=== PATIENT | male | born 1995 | race Caucasian/White ===

== ENCOUNTER 2019-01-10 05:21 | Emergency (ER) | payer SELFPAY ==
[2019-01-10] MEDS ORDERED: SULFAMETHOXAZOLE/TRIMETHOPRIM 800-160 MG TABLET PO ONE (07:56)
[2019-01-10] MEDS ORDERED: CEPHALEXIN 500 MG CAPSULE PO ONE (07:56)
[2019-01-10] MEDS ORDERED: ACETAMINOPHEN 325 MG TABLET PO ONE (07:59)
--- NOTE | 2019-01-10 08:02 | ER Document Report ---
ED General - General Chief Complaint: Skin Problem Time Seen by Provider: 01/10/19 07:43 - HPI Notes: Patient is a 23-year-old male that presents to the emergency department for chief complaint of right arm redness and pain. Patient reports history of IV drug abuse and most recently injected heroin into his right arm 2 days ago. He states he noticed some redness in the right arm 3 days ago and did inject into his arm after seeing it become red. He reports sweats and chills but denies taking his temperature having a fever. He states the right arm is throbbing and warm. He denies any numbness or tingling in the arm. He denies any difficulty breathing or chest pain. He has not taken any medicine at home for his symptoms. Patient states he last used opiates 2 days ago. Past Medical History: Negative Past Surgical History: Negative Social History: IV heroin abuse. Daily tobacco. Denies alcohol. Family History: Reviewed and noncontributory for presenting illness Allergies: Reviewed, see documented allergy list. REVIEW OF SYSTEMS: CONSTITUTIONAL : No fever No chills No diaphoresis No recent illness EENT: No vision changes No congestion No sore throat CARDIOVASCULAR: No chest pain No palpitations RESPIRATORY: No shortness of breath No cough No difficulty breathing GASTROINTESTINAL: No abdominal pain No nausea No vomiting No diarrhea GENITOURINARY: No dysuria No hematuria No difficulty urinating MUSCULOSKELETAL: No back pain No leg pain arm pain SKIN: rashes No lesions LYMPHATIC: No swollen, enlarged glands. NEUROLOGICAL: No lightheadedness No headache No weakness No paresthesias PSYCHIATRIC: No anxiety No depression PHYSICAL EXAMINATION: Vital signs reviewed, nursing noted reviewed. GENERAL: Well-appearing, well-nourished and in no acute distress. HEAD: Atraumatic, normocephalic. EYES: Eyes appear normal, extraocular movements intact, sclera anicteric, conjunctiva are normal. ENT: nares patent, oropharynx clear without exudates. Moist mucous membranes. NECK: Normal range of motion, supple without lymphadenopathy LUNGS: Breath sounds clear to auscultation bilaterally and equal. No wheezes rales or rhonchi. HEART: Tachycardic rate and regular rhythm without murmurs ABDOMEN: Soft, nontender, normoactive bowel sounds. No rebound, guarding, or rigidity. No masses appreciated. EXTREMITIES: Right medial AC erythema and tenderness to palpation with no fluctuance, good range of motion, no pitting or edema. NEUROLOGICAL: No focal neurological deficits. Moves all extremities spontaneously Motor and sensory grossly intact on exam. PSYCH: Normal mood, normal affect. SKIN: Warm, Dry, normal turgor, erythema over right AC without proximal streaking Past Medical History - Social History Smoking Status: Current Every Day Smoker Family History: Reviewed & Not Pertinent Physical Exam - Vital signs Vitals: Temp Pulse Resp BP Pulse Ox 98.7 F 119 H 16 117/96 H 100 01/10/19 07:52 01/10/19 07:52 01/10/19 07:52 01/10/19 07:52 01/10/19 07:52 Course - Re-evaluation Re-evalutation: 01/10/19 08:01 Vitals reviewed. Nursing notes reviewed. Patient has a cellulitis over his right AC joint. He has no appreciable abscess or area of fluctuance. Patient will be started on Bactrim and Keflex for his cellulitis. He is afebrile and well-appearing. He is mildly tachycardic and was given Tylenol for his pain. His tachycardia may be partially related to pain and opiate withdrawal. Patient was counseled on stopping heroin as well as any injectables especially in his right arm. He was counseled on warm compresses. [facility]. He is stable at discharge. - Vital Signs Vital signs: Temp Pulse Resp BP Pulse Ox 98.7 F 119 H 16 117/96 H 100 01/10/19 07:52 01/10/19 07:52 01/10/19 07:52 01/10/19 07:52 01/10/19 07:52 Discharge - Discharge Clinical Impression: Cellulitis of right arm Condition: Stable Disposition: HOME, SELF-CARE Instructions: MRSA Cellulitis ([facility]) Additional Instructions: Please return to the emergency department if you have any worsening, or concern of your symptoms. Please return to the emergency department if you develop chest pain, difficulty breathing, severe abdominal pain, or ongoing vomiting. Please follow-up with your primary care physician in 2-3 days and any other recommended physicians. If prescribed, take all medications as directed. If you have any questions or concerns do not hesitate to return the emergency department for evaluation. Stop using heroin Prescriptions: Cephalexin Monohydrate [Keflex 500 mg Capsule] 500 mg PO Q6H 7 Days capsule Sulfamethoxazole/Trimethoprim [Bactrim Ds Tablet] 1 each PO BID #14 tablet Referrals: [facility] [Provider Group] - Follow up in 3-5 days
[2019-01-10 08:44] VITALS: BP 131/77
== END 2019-01-10 08:51 | disposition home or self-care (01) ==
LOC: ER 05:21
DX: L03.113 Cellulitis of right upper limb (principal); Z79.899 Other long term (current) drug therapy; F17.200 Nicotine dependence, unspecified, uncomplicated
CPT/HCPCS: 99283